=== PATIENT | female | born 1950 | race Caucasian/White ===

== ENCOUNTER 2022-03-04 18:56 | Emergency (ER) | payer MEDICARE ==
[2022-03-04 19:10] VITALS: RESP 16; TEMP 97.6
[2022-03-04] MEDS ORDERED: SODIUM CHLORIDE 0.9% 1,000 ML IV STA (22:02)
[2022-03-04] MEDS ORDERED: KETOROLAC 15 MG/ML 1 ML VIAL IVP STA (22:13)
--- NOTE | 2022-03-04 22:13 | ED ---
General Adult HPI - General Chief complaint: Abdominal Pain Stated complaint: lt side & lt leg pain Time Seen by Provider: 03/04/22 22:02 Source: patient, RN notes reviewed Mode of arrival: ambulatory Limitations: no limitations - History of Present Illness Initial comments: Patient is a pleasant 71-year-old female presenting to the emergency r oom with complaints of pain to her left flank/back region along with pain in her left lower quadrant and intermittent cramping to her left lower extremity. She reports that all of her symptoms seemed to begin around the same time. She denies any abdominal pain not related to left lower quadrant, nausea, vomiting, diarrhea, dysuria, hematuria, lower extremity injury, range of motion impairment, lower extremity swelling or redness, fevers or chills. She has a past medical history significant for COPD and one episode of kidney stones in the past. - Related Data Previous Rx's Medication Instructions Recorded Ketorolac [Toradol] 10 mg PO Q8H PRN 5 Days #15 tab 03/05/22 Allergies Allergy/AdvReac Type Severity Reaction Status Date / Time No Known Allergies Allergy Verified 07/06/21 13:55 Review of Systems ROS Statement: Those systems with pertinent positive or pertinent negative responses have been documented in the HPI. ROS Other: All systems not noted in ROS Statement are negative. Past Medical History Past Medical History: COPD Additional Past Medical History / Comment(s): Nephrolithiasis x 1 episode History of Any Multi-Drug Resistant Organisms: None Reported Past Surgical History: Tubal Ligation Past Psychological History: No Psychological Hx Reported Smoking Status: Current every day smoker Past Alcohol Use History: None Reported Past Drug Use History: None Reported General Exam Limitations: no limitations General appearance: alert, in no apparent distress Head exam: Present: atraumatic, normocephalic, normal inspection Eye exam: Present: normal appearance, PERRL, EOMI. Absent: scleral icterus, conjunctival injection, periorbital swelling ENT exam: Present: normal exam, mucous membranes moist Neck exam: Present: normal inspection, full ROM. Absent: lymphadenopathy Respiratory exam: Present: normal lung sounds bilaterally. Absent: respiratory distress, wheezes, rales, rhonchi, stridor Cardiovascular Exam: Present: regular rate, normal rhythm, normal heart sounds. Absent: systolic murmur, diastolic murmur, rubs, gallop, clicks GI/Abdominal exam: Present: soft, tenderness (Slight left lower quadrant), normal bowel sounds. Absent: distended, guarding, rebound, rigid Rectal exam: Present: deferred Extremities exam: Present: normal inspection, full ROM, normal capillary refill. Absent: tenderness, pedal edema, joint swelling, calf tenderness Back exam: Present: normal inspection. Absent: CVA tenderness (R), CVA tenderness (L) Neurological exam: Present: alert, oriented X3, CN II-XII intact Psychiatric exam: Present: normal affect, normal mood Skin exam: Present: warm, dry, intact, normal color. Absent: rash Course Vital Signs 03/04/22 03/05/22 19:05 01:18 Temperature 97.6 F 97.6 F Pulse Rate 70 68 Respiratory 16 16 Rate Blood Pressure 88/63 90/64 O2 Sat by Pulse 99 99 Oximetry Medical Decision Making - Medical Decision Making 71-year-old female complaining of left flank pain along with left lower quadrant abdominal pain with no CVA tenderness on exam. Slight left lower quadrant tenderness with deep palpation, none with light palpation. No history of diverticulosis and low probability for gastrointestinal etiology given lack of other GI symptoms and need for deep palpation for tenderness. Will obtain x- ray of the lumbar spine symptoms correlate more with sciatica however given history of renal stones will also obtain ultrasound of the kidneys renal bladder. Will obtain CBC, CMP, amylase, lipase along with urinalysis. Will give IV fluid bolus and Toradol for pain. Ultrasound of the kidneys renal bladder negative for mass obstruction or hydrone phrosis. X-ray of the lumbar spine shows degenerative changes of the lower lumbar spine and spondylolisthesis at L4-L5. Pain significantly improved to near resolution with Toradol. CBC without anomalies. CMP overall stable. Urinalysis consistent with resolving urinary tract infection no indication for need for antibiotic therapy. Will discharge home on oral Toradol to treat some boggy oh with radiculopathy. Discussed need for follow-up with primary care provider, residual in the avoidance of heavy lifting. Case discussed with Dr. Lane. - Lab Data Result diagrams: 03/04/22 22:30 03/04/22 22:30 Lab Results 03/04/22 03/04/22 03/04/22 Range/Units 22:30 22:30 23:01 WBC 8.1 (3.8-10.6) k/uL RBC 4.12 (3.80-5.40) m/uL Hgb 13.5 (11.4-16.0) gm/dL Hct 40.2 (34.0-46.0) % MCV 97.5 (80.0-100.0) fL MCH 32.8 (25.0-35.0) pg MCHC 33.7 (31.0-37.0) g/dL RDW 12.7 (11.5-15.5) % Plt Count 267 (150-450) k/uL MPV 8.2 Neutrophils % 58 % Lymphocytes % 32 % Monocytes % 5 % Eosinophils % 2 % Basophils % 0 % Neutrophils # 4.7 (1.3-7.7) k/uL Lymphocytes # 2.6 (1.0-4.8) k/uL Monocytes # 0.4 (0-1.0) k/uL Eosinophils # 0.2 (0-0.7) k/uL Basophils # 0.0 (0-0.2) k/uL Sodium 136 L (137-145) mmol/L Potassium 4.5 (3.5-5.1) mmol/L Chloride 100 (98-107) mmol/L Carbon Dioxide 24 (22-30) mmol/L Anion Gap 12 mmol/L BUN 14 (7-17) mg/dL Creatinine 0.52 (0.52-1.04) mg/dL Est GFR (CKD-EPI)AfAm >90 (>60 ml/min/1.73 sqM) Est GFR (CKD-EPI)NonAf >90 (>60 ml/min/1.73 sqM) Glucose 105 H (74-99) mg/dL Calcium 9.5 (8.4-10.2) mg/dL Total Bilirubin 0.3 (0.2-1.3) mg/dL AST 24 (14-36) U/L ALT 19 (4-34) U/L Alkaline Phosphatase 81 (38-126) U/L Total Protein 7.3 (6.3-8.2) g/dL Albumin 4.6 (3.5-5.0) g/dL Amylase 72 (30-110) U/L Lipase 90 (23-300) U/L Urine Color Light Yellow Urine Appearance Cloudy H (Clear) Urine pH 7.0 (5.0-8.0) Ur Specific Merritt 1.008 (1.001-1.035) Urine Protein Negative (Negative) Urine Glucose (UA) Negative (Negative) Urine Ketones Negative (Negative) Urine Blood Trace H (Negative) Urine Nitrite Negative (Negative) Urine Bilirubin Negative (Negative) Urine Urobilinogen <2.0 (<2.0) mg/dL Ur Leukocyte Esterase Large H (Negative) Urine RBC 1 (0-5) /hpf Urine WBC 25 H (0-5) /hpf Ur Squamous Epith Cells 7 H (0-4) /hpf Urine Bacteria Rare H (None) /hpf Urine Mucus Rare H (None) /hpf - Radiology Data Radiology results: report reviewed, image reviewed X-ray of the lumbar spine impression degenerative disc mild changes in the lower lumbar spine. No fracture. No spinal lordosis. Degenerative first-degree L4-L5 spondylolisthesis US Kidneys/renal and bladder impression no evidence of solid renal mass or obstruction. Ureteral jets not seen during the exam and the urinary bladder. No evidence of bladder mass. Disposition Clinical Impression: Left lower quadrant abdominal pain, Low back pain radiating to left lower extremity Disposition: HOME SELF-CARE Condition: Stable Instructions (If sedation given, give patient instructions): Lumbar Radiculopathy (ED), Abdominal Pain (ED) Additional Instructions: Please utilize Toradol for pain the next 5 days as needed. Do not take any other anti-inflammatories while taking Toradol. May utilize Tylenol if needed for breakthrough pain. Avoid heavy lifting and bedrest. Please follow-up with your primary care provider. Please return to the Emergency Department if symptoms worsen or any other concerns. Prescriptions: Ketorolac [Toradol] 10 mg PO Q8H PRN 5 Days #15 tab PRN Reason: Pain Is patient prescribed a controlled substance at d/c from ED?: No Referrals: None,Stated [Primary Care Provider] - 1-2 days Time of Disposition: 01:08
[2022-03-04 22:54] LABS: Basophils % (A) 0 %; Eosinophils # (A) 0.2 k/uL (0-0.7); Eosinophils % (A) 2 %; HCT 40.2 % (34.0-46.0); HGB 13.5 gm/dL (11.4-16.0); Lymphocytes # (A) 2.6 k/uL (1.0-4.8); Lymphocytes % (A) 32 %; MCH 32.8 pg (25.0-35.0); MCHC 33.7 g/dL (31.0-37.0); MCV 97.5 fL (80.0-100.0); Mean Platelet Volume 8.2; Monocytes # (A) 0.4 k/uL (0-1.0); Monocytes % (A) 5 %; Neutrophils # (A) 4.7 k/uL (1.3-7.7); Neutrophils % (A) 58 %; Platelet Count 267 k/uL (150-450); RBC 4.12 m/uL (3.80-5.40); RDW 12.7 % (11.5-15.5); WBC 8.1 k/uL (3.8-10.6)
[2022-03-04 23:08] LABS: ALT 19 U/L (4-34); AST 24 U/L (14-36); African American GFR (CKD) >90 (>60 ml/min/1.73 sqM); Alkaline Phosphatase 81 U/L (38-126); Blood Urea Nitrogen 14 mg/dL (7-17); Calcium 9.5 mg/dL (8.4-10.2); Chloride 100 mmol/L (98-107); Glucose 105 mg/dL (74-99); Lipase 90 U/L (23-300); Non-African American GFR(CKD) >90 (>60 ml/min/1.73 sqM); Potassium 4.5 mmol/L (3.5-5.1); Sodium 136 mmol/L (137-145); Total Bilirubin 0.3 mg/dL (0.2-1.3)
[2022-03-04 23:10] LABS: Albumin 4.6 g/dL (3.5-5.0); Amylase 72 U/L (30-110); Anion Gap 12 mmol/L; Carbon Dioxide 24 mmol/L (22-30); Total Protein 7.3 g/dL (6.3-8.2)
[2022-03-04 23:21] LABS: Appearance,Urine Cloudy (Clear); Bacteria,Urine Rare /hpf; Bilirubin,Urine Negative (Negative); Blood,Urine Trace (Negative); Color,Urine Light Yellow; Glucose,Urine (UA) Negative (Negative); Ketones,Urine Negative (Negative); Leukocyte Esterase,Urine Large (Negative); Mucus,Urine Rare /hpf; Nitrite,Urine Negative (Negative); Protein,Urine Negative (Negative); RBC,Urine 1 /hpf (0-5); Specific Gravity,Urine 1.008 (1.001-1.035); Squamous Epithelial Cell,Urine 7 /hpf (0-4); Urobilinogen,Urine <2.0 mg/dL (<2.0); WBC,Urine 25 /hpf (0-5)
--- NOTE | 2022-03-05 00:37 | XR ---
EXAMINATION TYPE: XR lumbar spine 2 or 3V DATE OF EXAM: 03/04/2022 COMPARISON: NONE HISTORY: Flank pain Back pain TECHNIQUE: 4 views FINDINGS: There is 5 mm anterior subluxation of L4 in relation L5. There is mild narrowing L4-5 and L 5-S1 disc spaces. No compression fracture. Abdominal aorta is atheromatous. Sacroiliac joints are int act. IMPRESSION: Degenerative disc mild changes in the lower lumbar spine. No fracture. No spondylolysis. Degenerative first-degree L4-5 spondylolisthesis.
--- NOTE | 2022-03-05 00:40 | US ---
EXAMINATION TYPE: US kidneys/renal and bladder DATE OF EXAM: 03/05/2022 COMPARISON: NONE CLINICAL HISTORY: flank pain. Left flank pain. EC patient. EXAM MEASUREMENTS: Right Kidney: 10.5 x 5.0 x 3.2 cm Left Kidney: 10.8 x 4.8 x 4.5 cm Right Kidney: Medial anechoic lesion at hilum = Left Kidney: No hydronephrosis or masses seen Bladder: Distended, anechoic Bilateral Jets not seen IMPRESSION: No evidence of solid renal mass or obstruction. Ureteral jets not seen during the exam and the urinar y bladder. No evidence of a bladder mass.
[2022-03-05 01:20] VITALS: BP 90/64; PULSE 68
== END 2022-03-05 01:19 | disposition home or self-care (01) ==
LOC: EC 18:56
DX: R10.32 Left lower quadrant pain (principal); M54.50 Low back pain, unspecified; J44.9 Chronic obstructive pulmonary disease, unspecified; F17.200 Nicotine dependence, unspecified, uncomplicated
CPT/HCPCS: 36415; 80053; 82150; 83690; 85025; 81001; 87086; 72100; 76770; 99284; 96374; 96361 ×2; J1885

== ENCOUNTER 2022-06-13 10:45 | Emergency (ER) | payer MEDICARE ==
[2022-06-13] MEDS ORDERED: LIDOCAINE 5% PATCH TOPICAL ONE (11:39)
[2022-06-13] MEDS ORDERED: KETOROLAC 15 MG/ML 1 ML VIAL IM STA (11:39)
[2022-06-13] MEDS ORDERED: HYDROcodone/APAP 5-325MG 1 EACH TAB PO STA (11:39)
--- NOTE | 2022-06-13 12:11 | XR ---
EXAMINATION TYPE: XR thoracic spine 2V, XR lumbar spine 2 or 3V DATE OF EXAM: 06/13/2022 11:59 AM INDICATION: Patient age:Female; 71 years old; Reason for study: Pain after fall; COMPARISON: CT chest 03/19/2022 TECHNIQUE: 2 views of the thoracic and lumbar spine in Frontal and lateral projections. FINDINGS: Scattered osteophyte formation and disc space narrowing. Mild wedging of the midthoracic spine to andre ears chronic and similar to prior CT. No definitive evidence for acute fracture. Multilevel facet janis nt arthropathy most proximal and lower spine. Grade 1 anterior listhesis of L4 and L5. There is ather osclerosis of the arterial vasculature. IMPRESSION: Moderate multilevel disc degeneration changes with wedging of the midthoracic spine and grade 1 anter olisthesis of L4 and L5. No obvious acute fracture.
--- NOTE | 2022-06-13 12:12 | XR ---
EXAMINATION TYPE: XR shoulder complete LT DATE OF EXAM: 06/13/2022 11:59 AM INDICATION: Patient age:Female; 71 years old; Reason for study: Pain after fall; COMPARISON: 07/06/2021 TECHNIQUE: The left shoulder was examined in AP, internally rotated and scapular Y projections. FINDINGS: Mild degeneration changes of acromioclavicular and glenohumeral joint with osteophyte formation. No evidence of acute osseous pathology, joint dislocation, or soft tissue swelling. The remaining por tions of the visualized chest are unremarkable. IMPRESSION: 1. No acute osseous pathology. 2. Mild degeneration changes with shoulder. No significant change from prior.
[2022-06-13] MEDS ORDERED: ACET/COD 300 MG/30 MG STARTER PACK 6 TAB BTL PO STA (12:27)
--- NOTE | 2022-06-13 12:32 | ED ---
Fall HPI - General Chief Complaint: Fall Stated Complaint: fall Time Seen by Provider: 06/13/22 11:15 Source: patient, family, RN notes reviewed Mode of arrival: ambulatory - History of Present Illness Initial Comments: This is a 71-year-old female who presents to the emergency department for a fall. States that yesterday, she slipped in her driveway and fell, landing on her left side. Currently complaining of pain to the left lower back and left shoulder. She's been taking Advil duo action with minor relief in symptoms. She's also tried applying heat, which she states is somewhat beneficial. Denies hitting her head or taking any blood thinners. Denies any fevers, chills, sore throat, cough, dyspnea, chest pain, palpitations, abdominal pain, nausea, vomiting, diarrhea, or headaches. MD Complaint: fall Onset/Timin -: days(s) Fall From: standing Place Fall Occurred: home Loss of Consciousness: none Context: tripped/slipped - Related Data Previous Rx's Medication Instructions Recorded Ketorolac [Toradol] 10 mg PO Q8H PRN 5 Days #15 tab 03/05/22 Lidocaine 5% Patch [Lidoderm 5% 1 patch TOPICAL DAILY PRN #30 patch 06/13/22 Patch] Allergies Allergy/AdvReac Type Severity Reaction Status Date / Time No Known Allergies Allergy Verified 07/06/21 13:55 Review of Systems ROS Statement: Those systems with pertinent positive or pertinent negative responses have been documented in the HPI. ROS Other: All systems not noted in ROS Statement are negative. Past Medical History Past Medical History: COPD Additional Past Medical History / Comment(s): Nephrolithiasis x 1 episode History of Any Multi-Drug Resistant Organisms: None Reported Past Surgical History: Tubal Ligation Past Psychological History: No Psychological Hx Reported Smoking Status: Current every day smoker Past Alcohol Use History: None Reported Past Drug Use History: None Reported General Exam Limitations: no limitations General appearance: alert, in no apparent distress Head exam: Present: atraumatic, normocephalic, normal inspection Respiratory exam: Present: normal lung sounds bilaterally. Absent: respiratory distress, wheezes, rales, rhonchi, stridor Cardiovascular Exam: Present: regular rate, normal rhythm, normal heart sounds. Absent: systolic murmur, diastolic murmur, rubs, gallop, clicks Extremities exam: Present: other (Tenderness to palpation over the left lower back and left shoulder. No obvious swelling or ecchymosis. No obvious de formities.) Neurological exam: Present: alert, oriented X3, CN II-XII intact Psychiatric exam: Present: normal affect, normal mood Skin exam: Present: warm, dry, intact, normal color. Absent: rash Course Vital Signs 06/13/22 06/13/22 11:07 12:56 Temperature 98.3 F 97.9 F Pulse Rate 101 H 68 Respiratory 22 18 Rate Blood Pressure 93/65 145/75 O2 Sat by Pulse 99 97 Oximetry Medical Decision Making - Medical Decision Making This is a 71-year-old female who presents to the emergency department for a fall. Was pt. sent in by a medical professional or institution? @ -No Did you speak to anyone other than the patient for history? @ -Granddaughter Did you review nursing and triage notes? @ -Yes, and I agree, it is accurate with regards to the patient's symptoms. Were old charts reviewed? @ -No Differential Diagnosis? @ Differential Shoulder Pain: Fracture, dislocation, contusion, AC separation, rotator cuff tear, sprain, this is not meant to be an all-inclusive list. Differential Back Pain: Strain, zoster, cauda equina syndrome, epidural abscess, vertebral osteomyelitis, discitis, fracture, subluxation, disc herniation, DJD, spinal stenosis, dissection, AAA, pancreatitis, peptic ulcer disease, pyelonephritis, kidney stone, this is not meant to be an all-inclusive list. X-rays interpreted by me (1pt min.)? @ -X-rays of the left shoulder, thoracic, and lumbar spine obtained. My interpretation identifies no evidence of any acute fractures or dislocations. What testing was considered but not performed? (CT, X-rays, U/S, labs)? Why? @ -None What meds were considered but not given? Why? @ -None Did you discuss the management of the patient with other professionals? @ -No Did you reconcile home meds? @ -No Was smoking cessation discussed for >3mins.? @ -No Was critical care preformed (if so, how long)? @ -No Were there social determinants of health that impacted care today? How? (Homelessness, low income, unemployed, alcoholism, drug addiction, transportation, low edu. Level, literacy, decrease access to med. care, snf, rehab)? @ -No Was there de-escalation of care discussed even if they declined? (Discuss DNR or withdrawal of care, Hospice)? @ -No What co-morbidities impacted this encounter? (DM, HTN, Smoking, COPD, CAD, Cancer, CVA, Hep., AIDS, mental health diagnosis, sleep apnea, morbid obesity)? @ -Osteoporosis Was patient admitted / discharged? @ -Discharged. Imaging of the left shoulder, thoracic, and lumbar spine obtained revealing no acute irregularities. She was given a dose of Balm, Toradol, and a lidocaine patch was applied. States that medications improved her symptoms significantly. Prescription for lidocaine patches provided with dosing instructions reviewed. She can continue to take [id number] Advil as needed. Advised to apply ice for 10-15 minutes every 2-3 hours and follow-up with her primary care provider for reevaluation of symptoms. Undiagnosed new problem with uncertain prognosis? @ -None Drug Therapy requiring intensive monitoring for toxicity (Heparin, Nitro, Insulin, Cardizem)? @ -None Were any procedures done? @ -None Diagnosis/symptom? @ -Left shoulder contusion Acute, or Chronic, or Acute on Chronic? @ -Acute Uncomplicated (without systemic symptoms) or Complicated (systemic symptoms)? @ -Uncomplicated Side effects of treatment? @ -None Exacerbation, Progression, or Severe Exacerbation] @ -Not applicable Poses a threat to life or bodily function? @ -No Diagnosis/symptom? @ -Fall Acute, or Chronic, or Acute on Chronic? @ -Acute Uncomplicated (without systemic symptoms) or Complicated (systemic symptoms)? @ -Uncomplicated Side effects of treatment? @ -None Exacerbation, Progression, or Severe Exacerbation] @ -Not applicable Poses a threat to life or bodily function? @ -No Return precautions reviewed in depth, the patient is instructed to return to the emergency department with any new, worsening, or concerning symptoms. Patient verbalized understanding. This case was discussed in detail with the attending ED physician, Dr. Perez. Presentation, findings, and treatment plan discussed in detail as well. - Radiology Data Radiology results: report reviewed, image reviewed Disposition Clinical Impression: Fall, Left shoulder pain, Left low back pain Disposition: HOME SELF-CARE Instructions (If sedation given, give patient instructions): Fall Prevention for Older Adults (ED), Acute Low Back Pain (ED) Additional Instructions: Return to the emergency department with any new, worsening, or concerning symptoms. You can continue taking the Advil Duo Action for pain relief. Alternate with ice and heat, whichever one you find more beneficial. You can apply the lidocaine patches daily as needed. If your insurance does not cover them or they are too expensive, you can also purchase them [id number]. Follow up with your primary care provider in 1-2 days. Prescriptions: Lidocaine 5% Patch [Lidoderm 5% Patch] 1 patch TOPICAL DAILY PRN #30 patch PRN Reason: Pain Is patient prescribed a controlled substance at d/c from ED?: No Referrals: Francisco Smith MD [Primary Care Provider] - 1-2 days
[2022-06-13 12:57] VITALS: BP 145/75; PULSE 68; RESP 18; TEMP 97.9
== END 2022-06-13 12:59 | disposition home or self-care (01) ==
LOC: EC 10:45
DX: M25.512 Pain in left shoulder (principal); M51.36 Other intervertebral disc degeneration, lumbar region; M43.16 Spondylolisthesis, lumbar region; J44.9 Chronic obstructive pulmonary disease, unspecified; F17.200 Nicotine dependence, unspecified, uncomplicated; W01.0XXA Fall on same level from slipping, tripping and stumbling without subsequent striking against object, initial encounter; Y92.009 Unspecified place in unspecified non-institutional (private) residence as the place of occurrence of the external cause
CPT/HCPCS: 72070; 72100; 73030; 99284; 96372; J1885

== ENCOUNTER → 2022-09-17 | Outpatient (CLI) | payer MEDICARE ==
[2022-09-17 11:30] LABS: African American GFR (CKD) >90 (>60 ml/min/1.73 sqM); Blood Urea Nitrogen 14 mg/dL (7-17); Non-African American GFR(CKD) >90 (>60 ml/min/1.73 sqM)
--- NOTE | 2022-09-17 12:47 | CT ---
EXAMINATION TYPE: CT chest w con CT DLP: 120 mGycm, Automated exposure control for dose reduction was used. DATE OF EXAM: 09/17/2022 11:45 AM COMPARISON: Pet/CT 04/08/2022, 03/19/2022 CT CLINICAL INDICATION:Female, 72 years old with history of R91.1 SOLITARY PULMONARY NODULE, nodules TECHNIQUE: Multiple axial images were obtained through the chest. Sagittal and coronal reformats were created for review. Contrast used:100 mL of Isovue 300 with IV Contrast Oral contrast used: none. FINDINGS: LUNGS/ PLEURA: Increasing right lower lobe pulmonary nodule now measuring 10 mm previously 7 mm. Juanpablo tional 4 mm pulmonary nodule in the medial aspect and right upper lobe 2 mm pulmonary nodules which a re stable. AIRWAY: Patent and unremarkable. HEART: Size within normal limits. MEDIASTINUM: No gross evidence of adenopathy. VASCULATURE: There is occlusion of the left subclavian artery right after the bifurcation. There is r econstitution shortly after 2.2 cm. Scattered atherosclerosis of the arterial vasculature. MUSCULOSKELETAL: No acute osseous abnormalities SOFT TISSUES/LYMPH NODES: Unremarkable. LOWER NECK: No significant findings. UPPER ABDOMEN: No significant findings. IMPRESSION: 1. Increasing size of right lower lobe pulmonary nodule now measuring 10 mm. Findings concerning for malignancy until proven otherwise. 2. Left subclavian artery occlusion extending approximately 2.2 cm just after the origin, correlate for subclavian steal phenomenon.
== END | disposition home or self-care (01) ==
LOC: RADCTMAIN 10:47
PROVIDERS: ATTEND Thoracic Surgery (Cardiothoracic Vascular Surgery)
DX: I77.1 Stricture of artery (principal); R91.8 Other nonspecific abnormal finding of lung field
CPT/HCPCS: 82565; 84520; 71260; 36415; Q9967

== ENCOUNTER → 2022-10-23 | Outpatient (CLI) | payer MEDICARE ==
--- NOTE | 2022-10-23 19:50 | PE ---
EXAMINATION TYPE: PET CT fusion skull to thigh DATE OF EXAM: 10/23/2022 CLINICAL INDICATION:Female, 72 years old with history of R91.8; TECHNIQUE: Following the intravenous administration of 11.2 mCi of F-18 FDG, whole body images are performed from the skull base to the midthigh. Images are reviewed on the computer in the coronal, a xial, and sagittal planes. Reconstructed rotating images are created on independent workstation and reviewed on the computer. A non-contrast CT is performed in conjunction with the PET scan. Glucose level 99 mg/dL COMPARISON: CT 09/17/2022, PET/CT 04/08/2022, FINDINGS: Mediastinal SUV mean is 1.2. Hepatic parenchyma SUV mean is 1.8. SKULL BASE AND NECK: No suspicious radiotracer activity. CHEST, MEDIASTINUM, AND HILAR REGION: Abnormal FDG activity within the right lower lobe pulmonary nodule measuring 10 mm, max SUV 2.0 previ ously max SUV 1.4 measuring 7-8 mm in 2021. ABDOMEN AND PELVIS: No suspicious radiotracer activity. OSSEOUS STRUCTURES: No suspicious radiotracer activity. OTHER CT: Atherosclerosis of the arterial vasculature including the intracranial vasculature, carotid bifurcations and the coronary arteries. Scattered colonic diverticula. IMPRESSION: Mildly increased in size and FDG activity of the right lower lobe 10 mm pulmonary nodule concerning f or malignancy. No evidence of metastatic disease at this time.
== END | disposition home or self-care (01) ==
LOC: RADPETMAIN 10:51
PROVIDERS: ATTEND Thoracic Surgery (Cardiothoracic Vascular Surgery)
DX: R91.8 Other nonspecific abnormal finding of lung field (principal)
CPT/HCPCS: 78815; A9552

== ENCOUNTER → 2022-11-16 | Outpatient (CLI) | payer MEDICARE ==
[2022-11-16 15:35] LABS: Partial Thromboplastin Time 24.9 sec (22.0-30.0); Prothrombin Time 10.6 sec (9.0-12.0)
[2022-11-16 22:57] LABS: Basophils # (A) 0.05 X 10*3/uL (0.00-0.10); Basophils % (A) 0.8 %; Eosinophils # (A) 0.08 X 10*3/uL (0.04-0.35); Eosinophils % (A) 1.2 %; HCT 37.6 % (37.2-46.3); Lymphocytes # (A) 1.78 X 10*3/uL (0.90-5.00); Lymphocytes % (A) 27.5 %; MCH 32.1 pg (27.0-32.0); MCHC 31.9 d/dL (32.0-37.0); MCV 100.5 FL (80.0-97.0); Mean Platelet Volume 11.9 FL (9.5-12.2); Monocytes % (A) 6.2 %; NRBC Per 100 WBC 0 X 10*3/uL (0.00-0.01); Neutrophils # (A) 4.14 X 10*3/uL (1.80-7.70); Platelet Count 264 X 10*3/uL (140-440); RBC 3.74 X 10*6/uL (4.10-5.20); RDW 13.1 % (11.5-14.5); WBC 6.47 X 10*3/uL (4.50-10.00)
[2022-11-17 02:45] LABS: Blood Urea Nitrogen 13.2 mg/dL (9.0-27.0); Carbon Dioxide 28.1 mmol/L (21.6-31.8); Chloride 108 mmol/L (96-109); Glucose 93 mg/dL (70-110); Potassium 4.2 mmol/L (3.5-5.5); Sodium 146 mmol/L (135-145)
== END | disposition home or self-care (01) ==
LOC: LABPAT 13:51
PROVIDERS: ATTEND Thoracic Surgery (Cardiothoracic Vascular Surgery)
DX: Z01.812 Encounter for preprocedural laboratory examination (principal); Z51.81 Encounter for therapeutic drug level monitoring; C34.31 Malignant neoplasm of lower lobe, right bronchus or lung; E86.0 Dehydration; I49.9 Cardiac arrhythmia, unspecified; Z79.899 Other long term (current) drug therapy; R58 Hemorrhage, not elsewhere classified; R53.83 Other fatigue; R94.31 Abnormal electrocardiogram [ECG] [EKG]
CPT/HCPCS: 80051; 82565; 82947; 84520; 85025; 85610; 85730; 93005

== ENCOUNTER 2022-11-26 05:52 | Inpatient (IN) | payer MEDICARE ==
[2022-11-26] MEDS ORDERED: DEXAMETHASONE SOD PHOSPHATE 4 MG/ML 1 ML VIAL IV ONE (06:04)
[2022-11-26] MEDS ORDERED: ONDANSETRON 4 MG/2 ML VIAL IVP ONE (06:04)
[2022-11-26] MEDS ORDERED: LACTATED RINGERS 1,000 ML IV SCH (06:04)
[2022-11-26] MEDS ORDERED: HYDROmorphone 0.5 MG/0.5 ML SYRINGE IVP PRN (06:04)
[2022-11-26] MEDS ORDERED: MIDAZOLAM 2 MG/2 ML VIAL IVP ONE ×2 (07:10→07:17)
[2022-11-26] MEDS ORDERED: LIDOCAINE 2% INJ 20 MG/ML (2 ML VIAL) ONE (08:10)
[2022-11-26] MEDS ORDERED: ROCURONIUM 10 MG/ML (5 ML VIAL) IV ONE (08:10)
[2022-11-26] MEDS ORDERED: SUCCINYLCHOLINE CHLORIDE 200 MG/10 ML VIAL IV ONE (08:10)
[2022-11-26] MEDS ORDERED: GLYCOPYRROLATE 0.2 MG/ML 2 ML VIAL ONE (08:10)
[2022-11-26] MEDS ORDERED: SODIUM CHLORIDE 0.9% (PF) 10 ML VIAL ONE (08:10)
[2022-11-26] MEDS ORDERED: MIDAZOLAM 2 MG/2 ML VIAL ONE (08:10)
[2022-11-26] MEDS ORDERED: NEOSTIGMINE 1 MG/ML 10 ML VIAL ONE (08:10)
[2022-11-26] MEDS ORDERED: fentaNYL (PF) 50 MCG/ML 2 ML AMP ONE (08:10)
[2022-11-26] MEDS ORDERED: HYDROmorphone (PF) 1 MG/ML ONE (08:10)
[2022-11-26] MEDS ORDERED: ROPIVACAINE 5 MG/ML 30 ML VIAL ONE (08:10)
[2022-11-26] MEDS ORDERED: PHENYLEPHRINE 10 MG/ML VIAL ONE (08:10)
[2022-11-26] MEDS ORDERED: PROPOFOL 10 MG/ML 20 ML VIAL IV ONE (08:10)
[2022-11-26] MEDS ORDERED: BUPIVACAINE (PF) 0.5% 30 ML VIAL SQ ONE ×2 (09:08)
--- NOTE | 2022-11-26 09:22 | P.ANPRN ---
Procedure Note - Anesthesia - Nerve Block Performed Right Erector Spinae Single Time Out Performed: Yes ([id number]) Date of Procedure: 11/26/22 Procedure Start Time: Procedure Stop Time: :35 Location of Patient: PreOp Indication: Acute Post-Operative Pain, Dx/Pain Location (right chest), Requested by Surgeon Specifically requested for management of pain by DrErica: Javan Carey Sedation Type: Sedate with meaningful contact maintained Preparation: Sterile Prep Position: Left Lateral Catheter: None Needle Types: Pajunk Needle Gauge: 21 Ultrasound used to visualize needle placement: Yes Ultrasound used to observe medication spread: Yes Injectate: 0.5% Ropivacaine (see comment for volume) (25 cc + 10 cc of NS) Blood Aspirated: No Pain Paresthesia on Injection Noted: No Resistance on Injection: Normal Image Stored and Saved: Yes Events: Uneventful and Well Tolerated - Invasive Line Left Arterial Line Time Out Performed: Yes Location of Patient: PreOp Preparation: Sterile Prep, Sterile Dressing Arterial Line Location: Briachial Ultrasound Used: Yes Purpose - Visualization and Identification of Vasculature: Yes Narrative: Central line placement per sterile protocol utilized. Informed consent obtained from the patient. Procedure was performed under complete aseptic precautions. The left wrist is slightly extended and placed on a roll of cloth. Radial artery palpated and appeared to have a intact collateral circulation. Front of the wrist was cleaned with ChloraPrep. It was draped and 2 mL of 1% lidocaine was infiltrated and ability into the front of the wrist. After 2 unsuccessful attempts at attempting to thread the guidewire Left brachial artery was selected and A 20-gauge two and half inch Arrow arterial catheter was inserted and a bright red blood/back was noticed. It was connected to the pressure monitoring line and the flashback was confirmed. The line was sutured into the skin. Tegaderm dressing was applied. Patient tolerated the procedure very well with no apparent complications.
--- NOTE | 2022-11-26 10:21 | P.OP ---
Date of Procedure: 11/26/22 Preoperative Diagnosis: Mass right upper lobe lung Postoperative Diagnosis: Same, squamous cell carcinoma lung Procedure(s) Performed: Robotic-assisted right thoracoscopic wedge resection of mass right upper lobe lung with lymph node sampling Anesthesia: JOCELYNE Surgeon: Javan Carey Ground Layer #1: Evangelista Felder Estimated Blood Loss (ml): 15 IV fluids (ml): 1,000 Urine output (ml): 200 Pathology: other (Wedge resection right upper lobe lung with frozen section, deeper wedge resection right upper lobe lung including previous margin, lymph node stations R4, R8, R9, R11, level7) Condition: stable Disposition: PACU Indications for Procedure: 72-year-old female history of smoking and multiple lung nodules which been followed over a period of time peripheral nodule in the right lower lobe was increasing in size on serial CT scans and had converted from PET negative to PET positive. There was no adenopathy. There was no PET uptake in the lymph nodes. Wedge resection was recommended for diagnosis with the understanding that if the tumor was positive we would assure negative margins and perform a lymph node dissection. Operative Findings: Peripheral mass easily identified in the right lower lobe. It was wedged out with grossly negative margins however the frozen section revealed squamous cell carcinoma with tumor extending to the parenchymal margin. Deeper resection of the margin was easily performed. As a relative paucity of lymph nodes however we were able to sample lymph nodes from R9, R8, level 7, R4 and R 11. Exploration in the area of the R 10 lymph nodes did not reveal any lymph nodes. Final staple lines appeared intact although there was a small air leak from positive pressure ventilation at the completion of the case. Description of Procedure: Patient was brought to the operating room and placed supine on the operating table. Gen. anesthesia was induced. 35 mm double-lumen endotracheal tube was placed and positioned with fiberoptic bronchoscopy and secured. Patient was turned into the left lateral decubitus position and appropriately positioned for robotic surgery. The right chest was sterilely prepped and draped. Initial incision was made in the ninth interspace in the anterior axillary line. An 8- Slovak robotic port was placed here and after assuring placement in the pleural space CO2 insufflation was begun. To 12-Slovak robotic ports were placed anterior and posterior to this port a working port was placed between the posterior 12 and the midline 8 ports at the level of the diaphragm and a second 8 port was placed posteriorly just below the level of the fissure between the right upper lobe and the superior segment of the right lower lobe. The robot was docked. Tumor was identified. Wedge resection of the tumor was performed with robotic green staplers and the specimen brought out with an Endo Catch bag and sent for frozen section. While awaiting frozen section we began lymph node dissection. We began posteriorly resecting a R9 and several R8 lymph nodes. Dissection was carried up to the level 7 lymph nodes and these were resected. Lymph nodes were removed in a finger cot and sent for permanent section. Dissection was carried onto the bronchus intermedius and superiorly to the takeoff of the upper lobe bronchus. Dissection in this steve revealed a R 11 lymph node which was resected and sent for permanent section. Dissection was now carried to the superior aspect of the pleural reflection and dissection was carried out under the azygos vein. Exploration in this area did not reveal any R 10 lymph nodes. Dissection was carried superior to the azygos vein and a fairly extensive dissection revealed only one R4 lymph node. It was resected and sent for permanent section. This time the frozen section returned positive for squamous cell carcinoma. We felt we had completed the lymph node dissection adequately. As the report on the frozen section stated that the parenchymal margin had tumor extending to it was decided to take a deeper margin on the parenchyma. This was performed with multiple firings of the handheld stapler. This specimen was also removed in an Endo Catch bag and was appropriately labeled with suture on the previous margin. The robot was undocked. A 28- Slovak chest tube was placed through the anteriormost incision and positioned posterior apically and secured with 0 Ethibond suture. The lung was reinflated under thoracoscopic visualization. Incisions were closed with layers of Vicryl suture. Rib blocks were performed at the level of the incision with half percent Marcaine. Dry sterile dressings were applied the patient was turned supine and extubated and transferred to recovery in stable condition.
[2022-11-26] MEDS ORDERED: HYDROmorphone 0.5 MG/0.5 ML SYRINGE IVP ONE ×2 (10:59→11:22)
[2022-11-26] MEDS ORDERED: LACTATED RINGERS 1,000 ML IV ONE (11:00)
--- NOTE | 2022-11-26 11:33 | XR ---
EXAMINATION TYPE: XR chest 1V portable DATE OF EXAM: 11/26/2022 COMPARISON: 10/23/2022 HISTORY: Post lung biopsy TECHNIQUE: Single frontal view of the chest is obtained. FINDINGS: There is bilateral consolidation and tiny effusion. No sizable pneumothorax. Chest tube no casa in position. Diffuse osteopenia with hypertrophic degenerative changes spine. Atherosclerotic carl nge aorta. IMPRESSION: Bilateral areas of consolidation with no sizable thorax. Right lower lobe nodule reporte d by previous PET scan likely obscured by areas of consolidation in the right lung.
[2022-11-26] MEDS ORDERED: IPRATROPIUM-ALBUTEROL 3 ML NEB IH PRN (12:24)
[2022-11-26] MEDS ORDERED: ACETAMINOPHEN TAB 325 MG TAB PO PRN (12:24)
[2022-11-26] MEDS ORDERED: ONDANSETRON 4 MG/2 ML VIAL IVP PRN (12:24)
[2022-11-26] MEDS ORDERED: DEXTROSE 5%-0.45% NACL 1,000 ML IV SCH (12:24)
[2022-11-26] MEDS ORDERED: bisacodyL 10 MG SUPP RECTAL PRN (12:24)
[2022-11-26] MEDS: KETOROLAC 15 MG/ML 1 ML VIAL IVP SCH ×3 (12:49→23:35)
[2022-11-26] MEDS: IPRATROPIUM-ALBUTEROL 3 ML NEB IH SCH ×3 (14:42→21:03)
[2022-11-26] MEDS: HEPARIN SODIUM,PORCINE/PF 5,000 UNIT/0.5 ML SYRINGE SQ SCH ×2 (18:06→23:35)
--- NOTE | 2022-11-26 19:18 | P.CNPUL ---
History of Present Illness Consult date: 11/26/22 Chief complaint: Pulmonary nodules History of present illness: This 71-year-old female patient, smoker who was a history of pulmonary nodule. The patient was having serial CAT scans for surveillance including a 4 mm nodule in the right upper lobe an 8 mm nodule in the right lower lobe. The patient was referred to thoracic surgery and continued surveillance of these nodules was recommended. Most recent CAT scan of the chest that was done on 09/17/2022 showed increase in the size of the right lower lobe pulmonary nodule now measuring 10 mm in size and was diabetic concerning for malignancy. There was also evidence of left subclavian artery occlusion extending approximately 2.2 cm just after the origin raising the concern for subclavian steal syndrome. Additionally, 4 mm nodule was also seen in the right upper lobe and this was sta ble. A PET scan was also done on 10/23/2022 that showed mild increase in the size and FDG activity in the right lower lobe pulmonary nodule and there was no evidence of any metastatic disease. Based on all this, the patient was taken to the operating room and the patient underwent a robotic-assisted right thoracoscopic wedge resection and lymph node sampling. The frozen sections indicated squamous cell carcinoma of the lung. The patient is doing well. The postop chest x-ray shows bilateral area of consolidation without any evidence of pneumothorax. The chest tube was noted to be in good position. There is diffuse osteopenia and degenerative changes of the spine. The patient is currently on 2 L of oxygen by nasal cannula with a pulse ox of 99%. The patient is hemodynamically stable. Review of Systems Full review of system was done and the positive findings are all mentioned above in history of present illness Past Medical History Past Medical History: COPD, Hearing Disorder / Deafness, Memory Impairment, Renal Disease, Vascular Disorder Additional Past Medical History / Comment(s): Bilateral lung nodules/R side enlarging, has difficulty with remembering details, nephrolithiasis x 1 episode, L arm vessel blockage/blood pressure is lower in L arm, VARICOSE VEINS, pinched cervical nerve/occasional neck pain, three affiliated bilaterally History of Any Multi-Drug Resistant Organisms: None Reported Past Surgical History: Tonsillectomy, Tubal Ligation Past Anesthesia/Blood Transfusion Reactions: Motion Sickness Additional Past Anesthesia/Blood Transfusion Reaction / Comment(s): Pt has never received blood. Past Psychological History: No Psychological Hx Reported Additional Psychological History / Comment(s): Pt resides with her daughter. Smoking Status: Former smoker Past Alcohol Use History: Occasional Additional Past Alcohol Use History / Comment(s): Pt started smoking 1967 and quit 05/2022 Past Drug Use History: None Reported - Past Family History Father Family Medical History: Hypertension Mother Family Medical History: Cancer Additional Family Medical History / Comment(s): Hip fracture/ of pneumonia, breast cancer Medications and Allergies Home Medications Medication Instructions Recorded Confirmed Type Cholecalciferol [Vitamin D3 (25 25 mcg PO QAM 11/24/22 11/26/22 History Mcg = 1000 Iu)] Dual Action 1 tab PO DAILY PRN 11/24/22 11/26/22 History Multivitamins, Thera [Multivitamin 1 tab PO QAM 11/24/22 11/26/22 History (formulary)] Allergies Allergy/AdvReac Type Severity Reaction Status Date / Time No Known Allergies Allergy Verified 11/26/22 06:28 Physical Exam Vitals: Vital Signs Temp Pulse Pulse Resp BP BP BP 11/26/22 14:52 70 16 11/26/22 14:45 72 16 11/26/22 12:45 67 135/61 11/26/22 12:15 82 174/70 11/26/22 11:45 61 14 112/56 11/26/22 11:30 63 14 150/65 11/26/22 11:15 63 14 90/64 148/64 11/26/22 11:00 72 14 108/56 196/76 11/26/22 10:45 72 12 102/85 143/58 11/26/22 10:30 97.0 F L 53 L 12 107/52 11/26/22 08:14 71 227/91 193/84 142/76 11/26/22 07:46 75 16 133/62 178/79 209/91 11/26/22 06:33 97.6 F 73 17 124/59 228/91 BP Pulse Ox 11/26/22 14:52 11/26/22 14:45 100 11/26/22 12:45 98 11/26/22 12:15 98 11/26/22 11:45 98 11/26/22 11:30 93 L 11/26/22 11:15 92 L 11/26/22 11:00 98 11/26/22 10:45 100 11/26/22 10:30 100 11/26/22 08:14 191/71 99 11/26/22 07:46 100 11/26/22 06:33 97 Intake and Output 11/26/22 11/26/22 11/26/22 06:59 14:59 22:59 Intake Total 300 1850 240 Output Total 1025 Balance 300 825 240 Intake: IV 300 1800 Intake, IV Titration 50 Amount Dextrose 5%-0.45% NaCl 1, 50 000 ml @ 50 mls/hr IV . Q20H [facility] Rx#:[id number] Oral 240 Output: Urine 970 Estimated Blood Loss 55 Other: Weight 58.2 kg Assessment and Plan Plan: Right lower lobe pulmonary nodule, enlarging, measuring 10 mm in size, PET avid, concerning for malignancy. 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 For now there is no evidence of any air leak. No evidence of any pneumothorax on the chest x-ray Smoking cessation counseling Continue DuoNeb about treatments [id number] Toradol and all trend for pain control D5 half-normal saline at rate of 50 mL an hour Heparin subcu portably prophylaxis We'll continue to follow.
[2022-11-26] MEDS: traMADol 50 MG TAB PO PRN (21:14)
[2022-11-27] MEDS: KETOROLAC 15 MG/ML 1 ML VIAL IVP SCH (06:27)
[2022-11-27 06:35] LABS: Basophils % (A) 0 %; Eosinophils # (A) 0.1 k/uL (0-0.7); Eosinophils % (A) 1 %; HCT 32.6 % (34.0-46.0); HGB 10.8 gm/dL (11.4-16.0); Lymphocytes # (A) 2.3 k/uL (1.0-4.8); Lymphocytes % (A) 29 %; MCH 32.8 pg (25.0-35.0); MCV 99.3 fL (80.0-100.0); Mean Platelet Volume 8.1; Monocytes # (A) 0.5 k/uL (0-1.0); Monocytes % (A) 7 %; Neutrophils # (A) 4.8 k/uL (1.3-7.7); Neutrophils % (A) 62 %; Platelet Count 205 k/uL (150-450); RBC 3.28 m/uL (3.80-5.40); RDW 13.1 % (11.5-15.5); WBC 7.8 k/uL (3.8-10.6)
[2022-11-27 07:05] LABS: African American GFR (CKD) >90 (>60 ml/min/1.73 sqM); Anion Gap 3 mmol/L; Blood Urea Nitrogen 14 mg/dL (7-17); Calcium 8.7 mg/dL (8.4-10.2); Carbon Dioxide 29 mmol/L (22-30); Chloride 101 mmol/L (98-107); Glucose 101 mg/dL (74-99); Non-African American GFR(CKD) 88 (>60 ml/min/1.73 sqM); Potassium 4.3 mmol/L (3.5-5.1); Sodium 133 mmol/L (137-145)
[2022-11-27] MEDS ORDERED: PANTOPRAZOLE 40 MG TABLET PO SCH (07:30)
[2022-11-27] MEDS: HEPARIN SODIUM,PORCINE/PF 5,000 UNIT/0.5 ML SYRINGE SQ SCH (08:09)
[2022-11-27] MEDS: traMADol 50 MG TAB PO PRN (08:10)
--- NOTE | 2022-11-27 08:23 | P.PN ---
Subjective Progress Note Date: 11/27/22 Principal diagnosis: Mass right lower lobe the lung, squamous cell carcinoma. Previous medical history of COPD, previous tobacco dependence with cessation in May 2022, memory impairment, left upper extremity subclavian steal syndrome POD #1 robotic-assisted right thoracoscopic wedge resection of mass of the right lower lobe of the lung with lymph node sampling The patient was seen and examined sitting up in bed this morning on the cardiac stepdown unit eating breakfast with daughter at bedside. States pain is controlled on current medication regimen although has not received any tramadol since last night, denies shortness of breath. Remains in sinus rhythm and he modynamically stable. Right pleural chest tube present to [facility], no air leak present, 210 mL output since surgery. Remains on room air with oxygen saturation in the mid 90s, able to achieve 1000 mL on spirometry. Chest x-ray, labs reviewed. No other new concerns. Objective - Vital Signs Vital signs: Vital Signs Temp 97.8 F 11/27/22 04:00 Pulse 72 11/27/22 04:00 Resp 16 11/27/22 04:00 BP 144/67 11/27/22 04:00 Pulse Ox 95 11/27/22 04:00 FiO2 Intake & Output 11/26/22 11/27/22 11/27/22 18:59 06:59 18:59 Intake Total 2090 140 240 Output Total 1080 630 Balance 1010 -490 240 Intake: IV 1800 20 Invasive Line 1 20 Intake, IV Titration 50 Amount Dextrose 5%-0.45% NaCl 1, 50 000 ml @ 50 mls/hr IV . Q20H [facility] Rx#:[id number] Oral 240 120 240 Output: Chest Tube Drainage 55 130 Right 55 130 Urine 970 500 Estimated Blood Loss 55 Other: Voiding Method Indwelling Catheter Indwelling Catheter # Voids 1 - Exam CONSTITUTIONAL: Appears comfortable, cooperative, no acute distress RESPIRATORY: Lungs sounds diminished bilaterally. Respirations even, nonlabored. Currently on room air with oxygen saturation 95%. Able to achieve 1000 mL on incentive spirometry. Strong cough. CARDIOVASCULAR: S1, S2 present. Regular rate and rhythm, sinus rhythm on telemetry. Palpable peripheral pulses bilaterally. No edema present. No calf pain or tenderness noted. SCDs present. GASTROINTESTINAL: Abdomen soft, nontender, nondistended. Active bowel sounds present 4 quadrants. Tolerating diet GENITOURINARY: Yu discontinued, patient has voided since removal INTEGUMENTARY: Skin is warm and dry with evidence of good perfusion NEUROLOGIC: Cranial nerves II through XII intact MUSKULOSKELETAL: Able to move all extremities, strength equal bilaterally PSYCHIATRIC: Alert and oriented to person place and time, appropriate affect, intact judgment and insight INVASIVE LINES AND TUBES: Right pleural chest tubes present to waterseal, no air leak present, 130 mL serosanguineous drainage overnight, 210 mL since surgery - Allied health notes Allied health notes reviewed: nursing - Labs CBC & Chem 7: 11/27/22 06:04 11/27/22 06:04 Labs: Abnormal Lab Results - Last 24 Hours (Table) 11/27/22 11/27/22 Range/Units 06:04 06:04 RBC 3.28 L (3.80-5.40) m/uL Hgb 10.8 L (11.4-16.0) gm/dL Hct 32.6 L (34.0-46.0) % Sodium 133 L (137-145) mmol/L Glucose 101 H (74-99) mg/dL - Imaging and Cardiology Chest x-ray: image reviewed Assessment and Plan Assessment: Mass right lower lobe the lung, squamous cell carcinoma, status post robotic- assisted right thoracoscopic wedge resection of mass of the right lower lobe of the lung with lymph node sampling History of COPD Previous tobacco dependence with cessation in May 2022 Memory impairment Left upper extremity subclavian steal syndrome Plan: Will discontinue pleural chest tube today, repeat chest x-ray Encourage incentive spirometry is 10 times every hour while awake. Bronchodilators per pulmonology Increase activity, ambulate as tolerated Pain control with current medication regimen If repeat chest x-ray after chest tube removal is stable will discharge to home today with follow-up appointments to be made
--- NOTE | 2022-11-27 08:26 | XR ---
EXAMINATION TYPE: XR chest 2V DATE OF EXAM: 11/27/2022 COMPARISON: 11/26/2022 TECHNIQUE: PA and lateral views submitted. HISTORY: Postlung biopsy FINDINGS: There is bilateral consolidation and small effusion. Right-sided chest tube is seen no sizable pneumo thorax. Heart size normal. Diffuse osteopenia with atherosclerotic change of the aorta. Hyperinflation suggests COPD and there i s degenerative change of the spine. Small amount of soft tissue air is seen posteriorly on the latera l view. IMPRESSION: 1. No sizable pneumothorax. Persistent bilateral lower lobe infiltrate.
[2022-11-27] MEDS: IPRATROPIUM-ALBUTEROL 3 ML NEB IH SCH (08:29)
[2022-11-27 08:30] VITALS: BP 160/67; RESP 18; TEMP 98.4
[2022-11-27] MEDS ORDERED: CHOLECALCIFEROL 25 MCG (1000 IU) TABLET PO SCH (09:00)
[2022-11-27] MEDS ORDERED: MULTIVITAMINS, THERA 1 EACH TAB PO SCH (09:00)
--- NOTE | 2022-11-27 10:42 | XR ---
EXAMINATION TYPE: XR chest 2V DATE OF EXAM: 11/27/2022 COMPARISON: 11/27/2022 TECHNIQUE: PA and lateral views submitted. HISTORY: Cough FINDINGS: There is bilateral consolidation and small effusion. Right-sided chest tube is removed with no sizabl e pneumothorax. Heart size normal. Diffuse osteopenia with atherosclerotic change of the aorta. Hyper inflation suggests COPD and there is degenerative change of the spine. Small amount of soft tissue ai r is seen posteriorly on the lateral view. IMPRESSION: 1. Persistent masslike consolidation right lower lobe stable. Chest tube has been removed with no siz able pneumothorax.
[2022-11-27 11:08] VITALS: PULSE 90
--- NOTE | 2022-11-27 11:10 | P.DS ---
Providers Date of admission: 11/26/22 05:52 Expected date of discharge: 11/27/22 Attending physician: Javan Carey Consults: 11/26/22 12:24 Consult Physician Routine Consulting Provider: Avni Day Consult Reason/Comments: post lung biopsy Do you want consulting provider notified?: Yes Primary care physician: Francisco Smith [facility] Course: FINAL DIAGNOSIS: 1. Mass right lower lobe of the lung, squamous cell carcinoma 2. History of COPD 3. Previous tobacco dependence with cessation in May 2022 4. Memory impairment 5. Left upper extremity subclavian steal syndrome PRINCIPAL PROCEDURE: 1. Robotic-assisted right thoracoscopic wedge resection of mass of the right lower lobe of the lung with lymph node sampling HISTORY OF PRESENT ILLNESS: This is a 72-year-old female patient who follows outpatient with Dr. Smith for primary care. She has a history of previous smoking and multiple lung nodules which had been followed over a period of time, the peripheral nodule on the right lower lobe was increasing in size on serial CT scans and had converted from PET negative to PET positive. There was no adenopathy, there was no PET uptake in the lymph nodes. The patient was referred to Dr. Eaton from cardiothoracic surgery. She was recommended to undergo robotic-assisted right thoracoscopic wedge resection of the mass in the right lower lobe of the lung with lymph node sampling. The usual perioperative course was discussed in detail with the patient and her family, all risks and benefits were explained, all questions were answered, and consent was obtained to proceed with surgery. The patient was scheduled for elective surgery at the earliest possible date. HOSPITAL COURSE: The patient was brought to the hospital on 11/26/2022, taken to the preoperative area, prepared in the usual fashion, and subsequently taken to the operating room where Dr. Carey performed a robotic-assisted right thoracoscopic wedge resection of the mass of the right lower lobe of the lung with lymph node sampling. Upon completion of surgery the patient was extubated and taken to the recovery room for further monitoring. She was eventually admitted to 3 S. cardiac stepdown unit, she had no air leak in her chest tube chamber the night of surgery and it was placed to waterseal. The following morning chest x-ray revealed no pneumothorax, the patient had no air leak and her right-sided pleural chest tube was discontinued without incident. Follow-up chest x-ray was stable. Her oxygen was titrated down, she was tolerating oral d iet, her pain was controlled, and she was ready to be discharged to home on postoperative day #1. She received written and verbal instruction regarding her medications, activity restrictions, signs and symptoms requiring physician notification, and follow-up appointments. Patient Condition at Discharge: Stable Plan - Discharge Summary Discharge Rx Participant: No New Discharge Prescriptions: New traMADol HCl [Ultram] 50 mg PO QID PRN #28 tab PRN Reason: Severe Pain (Scale 7 To 10) Continue Multivitamins, Thera [Multivitamin (formulary)] 1 tab PO QAM Dual Action 1 tab PO DAILY PRN PRN Reason: Pain Cholecalciferol [Vitamin D3 (25 Mcg = 1000 Iu)] 25 mcg PO QAM Discharge Medication List Cholecalciferol [Vitamin D3 (25 Mcg = 1000 Iu)] 25 mcg PO QAM 11/24/22 [History] Dual Action 1 tab PO DAILY PRN 11/24/22 [History] Multivitamins, Thera [Multivitamin (formulary)] 1 tab PO QAM 11/24/22 [History] traMADol HCl [Ultram] 50 mg PO QID PRN #28 tab 11/27/22 [Rx] Follow up Appointment(s)/Referral(s): Francisco Smith MD [Primary Care Provider] - As Needed Javan Carey MD [STAFF PHYSICIAN] - 12/02/22 1:15 pm Avni Day MD [STAFF PHYSICIAN] - 12/25/22 1:00 pm Activity/Diet/Wound Care/Special Instructions: DISCHARGE INSTRUCTIONS: 1. No driving for 2 weeks, or until physician gives their ok. 2. No lifting, pushing, or pulling more than 10 pounds for 2 weeks. The physician will advise of any restriction changes. 3. Continue pain control per as needed orders. Alternate acetaminophen (Tylenol) and ibuprofen (Motrin/Advil) for pain. 4. Continue with incentive spirometry and splinting until otherwise directed by the physician. 5. Leave chest tube dressing for 48 hours. After that, remove all dressings and shower daily. 6. Routine incision care. No powders, lotions, ointments on incisions. 7. Please call surgeon/PROCESS ENGINEERING INTERN for temp greater than 101 F or purulent drainage from incisions. 8. Smoking cessation counseling and program information provided. Quitting smoking is the most important step you can take to improve your health. For additional information and assistance to quit smoking, please call the [place] tobacco quit line (1-945-FHZM-NOW/ ) or online: [email or web address]-[email or web address]-qu it-tobacco Discharge Disposition: HOME SELF-CARE
--- NOTE | 2022-12-01 22:36 | CONS ---
CONSULTATION CHIEF COMPLAINT: Carcinoma of the right lower lobe. HISTORY OF PRESENT ILLNESS: This lady is admitted for an elective resection of a right lower lobe mass. REVIEW OF SYSTEMS: She has had no chest pain, headache, neurologic problems, shortness of breath, hemoptysis, abdominal pain, nausea, vomiting, melena, hematochezia, jaundice, hepatitis, cirrhosis, renal failure, diabetes, etc. Past medical history, family history and personal and social histories can all be found in her admitting summary. She does have a history of hypertension and she does smoke. PHYSICAL EXAMINATION: VITAL SIGNS: Blood pressure is 138/82 with a pulse of 87, respirations 14, and temperature 96.8. GENERAL: She appeared to be well developed, well nourished, in no acute distress. SKIN: Skin color is normal. Skin is warm, dry. LYMPHATICS: Lymph nodes are not enlarged. HEAD, EARS, EYES, NOSE, MOUTH AND THROAT: Normal. NECK: Neck veins are not distended. Thyroid not enlarged. CHEST: Clear. CARDIAC: Normal. ABDOMEN: Soft, nontender. IMPRESSION: 1. Right lower lobe lung mass. 2. Chronic obstructive pulmonary disease. 3. Hypertension. RECOMMENDATIONS: None at this time. She is stable. MMODL / IJN: [id number] /
--- NOTE | 2022-12-01 22:45 | PN ---
PROGRESS NOTE DATE OF SERVICE: 11/27/2022 CHIEF COMPLAINT: Right lower lobe neoplasm. HISTORY OF PRESENT ILLNESS: This lady is stable and doing well probably go home today. PHYSICAL EXAMINATION: LUNGS: She has good breath sounds bilaterally. CARDIAC: Normal. ABDOMEN: Soft, nontender. IMPRESSION: 1. Right lower lobe neoplasm. 2. Hypertension. 3. Chronic obstructive pulmonary disease. PLAN: Probably home today. MMODL / IJN: [id number] /
== END 2022-11-27 11:44 | disposition home or self-care (01) | DRG 167 ==
LOC: 2ORMAIN 05:52 → 3SCARD 11:22
PROVIDERS: ADMIT Thoracic Surgery (Cardiothoracic Vascular Surgery); ATTEND Thoracic Surgery (Cardiothoracic Vascular Surgery)
PROC: 8E0W4CZ Robotic Assisted Procedure of Trunk Region, Percutaneous Endoscopic Approach (ICD-10-PCS; principal; 2022-11-26 07:30)
PROC: 07B74ZX Excision of Thorax Lymphatic, Percutaneous Endoscopic Approach, Diagnostic (ICD-10-PCS; principal; 2022-11-26 07:30)
PROC: 0BBF4ZX Excision of Right Lower Lung Lobe, Percutaneous Endoscopic Approach, Diagnostic (ICD-10-PCS; principal; 2022-11-26 07:30)
DX: C34.31 Malignant neoplasm of lower lobe, right bronchus or lung (principal); G45.8 Other transient cerebral ischemic attacks and related syndromes; F17.210 Nicotine dependence, cigarettes, uncomplicated; J43.9 Emphysema, unspecified; M54.16 Radiculopathy, lumbar region; M54.2 Cervicalgia; G89.29 Other chronic pain; I83.90 Asymptomatic varicose veins of unspecified lower extremity; I70.8 Atherosclerosis of other arteries; M85.80 Other specified disorders of bone density and structure, unspecified site; H91.90 Unspecified hearing loss, unspecified ear; Z79.899 Other long term (current) drug therapy; Z71.6 Tobacco abuse counseling; Z87.442 Personal history of urinary calculi
CPT/HCPCS: 64999; 71045; 71046; 80048; 85025; 86850; 86900; 86901; 88305; 88307; 88331; 94640; 94760

== ENCOUNTER → 2023-06-28 | Outpatient (CLI) | payer MEDICARE ==
[2023-06-28 11:38] LABS: African American GFR (CKD) >90 (>60 ml/min/1.73 sqM); Blood Urea Nitrogen 14 mg/dL (7-17); Non-African American GFR(CKD) >90 (>60 ml/min/1.73 sqM)
--- NOTE | 2023-07-01 14:50 | CT ---
EXAMINATION TYPE: CT chest w con DATE OF EXAM: 06/28/2023 COMPARISON: HISTORY: f/u lung nodule. CT DLP: 128.40 mGycm, Automated exposure control for dose reduction was used. CONTRAST: Performed injected with 100ml mL of Isovue 300. TECHNIQUE: Axial images were obtained at 5 mm thick sections. Reconstructed images are reviewed on [employer] computer in the coronal plane. FINDINGS: Is heterogeneity within the left lobe liver. This was present previously. Follow-up ultraso und can be performed. There is a 0.5 cm nodule posterior medial right midlung. Series 4 image 34. This is stable based on m easurements but appears somewhat tracy than the comparison study. There is some distortion within th e posterior right midlung. This is an interval change. Correlate for surgical intervention. Emphysema tous changes are present. No enlarged mediastinal or hilar adenopathy is evident. The ascending aorta diameter at the level o f the main pulmonary artery is 3.1 cm. The main pulmonary artery diameter at the bifurcation is 2.3 cm. The calcification is present. Limited CT sections are obtained through the upper abdomen. Abdomen is essentially unremarkable. IMPRESSION: 1. Appear to be postsurgical change within the posterior right midlung. Clinical correlation recommen ded. 2. Stable nodule posterior medial left lung. 3. Previous larger posterior lateral right lung nodule not identified currently.
== END | disposition home or self-care (01) ==
LOC: RADCTMAIN 10:56
PROVIDERS: ATTEND Internal Medicine Critical Care Medicine
DX: R91.1 Solitary pulmonary nodule (principal); C34.90 Malignant neoplasm of unspecified part of unspecified bronchus or lung
CPT/HCPCS: 82565; 84520; 71260; 36415; Q9967

== ENCOUNTER → 2023-12-31 | Outpatient (CLI) | payer MEDICARE ==
--- NOTE | 2024-01-21 14:04 | CT ---
Site ID [facility] Patient Cindy Denton A ID [id number] Age/Gender: 73Y, F Order # N/A Procedure CT Chest w Contrast Date 12/31/2023 11:48:00 AM EXAMINATION TYPE: CT chest w con CT DLP: 158.70 mGycm, Automated exposure control for dose reduction was used. DATE OF EXAM: 01/05/2024 10:59 AM COMPARISON: CT chest 06/28/2023, 09/17/2022, 03/19/[address] 11/02/2022, 04/08/2022. CLINICAL INDICATION: Female, 73 year old with history of malignant neoplasm of skin, lung cancer. TECHNIQUE: Multiple axial images were obtained through the chest following the administration of 100 cc of Isovue 300. . Coronal and sagittal reformats reviewed. FINDINGS: LUNGS/ PLEURA: No pleural effusion or pneumothorax. No focal consolidation. Mild centrilobular emphys ematous changes. Similar postsurgical changes within the right lower lobe with linear scarring. Stabl e right lower lobe 5 mm nodule (series 4, image 31). No new or enlarging pulmonary nodules. Subsegmen jose atelectasis within the left lower lobe. AIRWAY: Patent and unremarkable.. HEART: Size within normal limits. No pericardial effusion. Moderate coronary arterial calcifications. MEDIASTINUM: No evidence of adenopathy. VASCULATURE: No aortic aneurysm. 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 Mild atherosclerotic calcifica tion of the aorta and its branches. MUSCULOSKELETAL: No acute osseous abnormalities. No aggressive osseous lesion. 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 SOFT TISSUES/LYMPH NODES: Unremarkable. LOWER NECK: Subcentimeter hypodense nodules within the left thyroid lobe. UPPER ABDOMEN: No significant findings. IMPRESSION: 1. Postsurgical changes of the right lower lobe with stable right lower lobe 5 mm pulmonary nodule. C ontinued surveillance is recommended. 2. Similar left subclavian artery origin occlusion with distal reconstitution.
== END | disposition home or self-care (01) ==
LOC: RADCTMAIN 10:15
PROVIDERS: ATTEND Internal Medicine Critical Care Medicine
DX: C34.90 Malignant neoplasm of unspecified part of unspecified bronchus or lung (principal); R91.1 Solitary pulmonary nodule; Z85.828 Personal history of other malignant neoplasm of skin
CPT/HCPCS: 71260; Q9967

== ENCOUNTER → 2024-06-16 | Outpatient (CLI) | payer MEDICARE ==
[2024-06-16 11:30] LABS: African American GFR (CKD) >90 (>60 ml/min/1.73 sqM); Blood Urea Nitrogen 16 mg/dL (7-17); Non-African American GFR(CKD) 89 (>60 ml/min/1.73 sqM)
--- NOTE | 2024-06-16 15:11 | CT ---
EXAMINATION TYPE: CT chest w con DATE OF EXAM: 06/16/2024 COMPARISON: 12/31/2023 HISTORY: 73-year-old female C3 4.90, lung cancer Follow up. TECHNIQUE: Contiguous axial scanning of the chest after the administration of 100ml mL of Isovue 300. Coronal/sagittal reconstructions performed. CT DLP: 219.8mGycm. Automatic exposure control utilized for a dose reduction. FINDINGS: The heart is normal size without pericardial effusion. LAD and RCA coronary artery calcifications are present. Mild atherosclerotic arch calcifications. There is occlusion of the proximal left subclavian artery with reconstitution probably from retrograd e vertebral artery flow. 1.0 cm nodule redemonstrated left thyroid lobe. No thoracic lymphadenopathy by CT size criteria. Minimal right apical pleural parenchymal scarring. There is moderate emphysematous change. Focal arch itectural distortion and curvilinear density right lower lobe may have minimally increased 5 mm nodul ar opacity, axial image 29. 5 mm posterior right midlung pulmonary nodule is unchanged. No consolidation or pleural effusion. 4 mm hypodensity anterior right liver lobe likely a small cyst is unchanged. Mild thickening of the l eft adrenal gland without discrete nodularity is unchanged. Bones: Accentuated thoracic kyphosis with moderate degenerative disc disease and prominent anterior e ndplate spondylosis mid to lower thoracic spine. IMPRESSION: 1. COPD with moderate emphysema. 2. Postsurgical and posttreatment change right lower lobe. 5 mm nodularity along the staple line appe ars slightly more pronounced. Attention on follow-up to exclude any developing abnormal soft tissue h ere. Otherwise, no other evidence for recurrence. 3. The 5 mm posterior right midlung pulmonary nodule remains unchanged. 4. 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 Vessel reconstitu tion possibly from retrograde flow from the left vertebral artery. Correlate for any potential subcla vian steal symptoms. [facility], , 06/16/2024 3:09 PM
== END | disposition home or self-care (01) ==
LOC: RADCTMAIN 10:53
PROVIDERS: ATTEND Internal Medicine Critical Care Medicine
DX: C34.90 Malignant neoplasm of unspecified part of unspecified bronchus or lung (principal); J44.9 Chronic obstructive pulmonary disease, unspecified; J43.9 Emphysema, unspecified; Z98.890 Other specified postprocedural states; I70.8 Atherosclerosis of other arteries
CPT/HCPCS: 82565; 84520; 71260; 36415; Q9967

== ENCOUNTER → 2024-11-21 | Outpatient (CLI) | payer MEDICARE ==
[2024-11-21 12:48] LABS: African American GFR (CKD) >90 (>60 ml/min/1.73 sqM); Blood Urea Nitrogen 12 mg/dL (7-17); Non-African American GFR(CKD) 88 (>60 ml/min/1.73 sqM)
--- NOTE | 2024-11-21 13:52 | CT ---
CT chest with contrast. HISTORY: Lung cancer, progression study. COMPARISON: 06/16/2024. TECHNIQUE: Multiple axial images were obtained through the thorax following IV contrast material FINDINGS: There are marked emphysematous changes. There are stable bands of interstitial density in the right lower lobe consistent with scarring or ch ronic atelectasis. There is a persistent 6.3 cm nodule in the right lower lobe near the focal area of scarring or atelectasis. There are no new or suspicious lung masses or nodules. There is no new airspace consolidation. There is no pleural effusion or pneumothorax. The great vessels and chest are normal. There is no mediastinal, hilar or axillary adenopathy. Limited scanning through the upper abdomen reveals no gross abnormality. There are no focal osseous lesions. IMPRESSION: 1. Marked emphysematous changes. 2. Stable interstitial scarring/atelectasis in the right lower lobe. 3. Stable 6.3 mm nodule in the right lower lobe. 4. No interval change. No new abnormality seen. [facility], , 11/21/2024 1:50 PM
== END | disposition home or self-care (01) ==
LOC: RADCTMAIN 12:15
PROVIDERS: ATTEND Internal Medicine Critical Care Medicine
DX: C34.90 Malignant neoplasm of unspecified part of unspecified bronchus or lung (principal); R91.1 Solitary pulmonary nodule; J43.9 Emphysema, unspecified
CPT/HCPCS: 82565; 84520; 71260; 36415; Q9967